=== PATIENT | female | born 1995 | race African-American/Black ===

== ENCOUNTER 2023-04-21 08:40 | Day surgery (SDC) | payer OTHER ==
[2023-04-21] MEDS ORDERED: levETIRAcetam 500 MG/5 ML VIAL ONE (09:15)
[2023-04-21] MEDS ORDERED: Acetaminophen 500 MG TAB ONE (09:32)
[2023-04-21 09:39] LABS: #Eosinphils 0.2 10x3/uL (0.0-0.5); #Monocytes 0.4 10x3/uL (0.0-1.1); #Neutrophils 6.5 10x3/uL (1.5-8.4); %Basophils 0.5 % (0.0-2.0); %Eosinophils 1.9 % (0.0-6.0); %Lymphocytes 17.8 % (18.0-47.0); %Neutrophils 74.3 % (40.0-75.0); Hematocrit 26.2 % (34.9-44.5); Hemoglobin 8.8 g/dL (12.0-15.5); Mean Corpuscular HGB CONC 33.6 g/dL (32.0-36.0); Mean Corpuscular Hemoglobin 29.8 pg (27.0-33.0); Mean Corpuscular Volume 88.8 fl (81.6-98.3); Platelet Count 103 10x3/uL (150-450); RBC Distribution Width 14.3 % (11.5-14.5); Red Blood Cell (RBC) Count 2.95 10x6/uL (3.90-5.03); White Blood Cell (WBC) Count 8.8 10x3/uL (3.5-10.5)
[2023-04-21 09:41] LABS: ALT (SGPT) Less than 7 U/L (8-55); AST (SGOT) 9 U/L (5-34); Albumin 3.2 g/dL (3.5-5.0); Alkaline Phosphatase 72 U/L (40-110); Anion Gap 12 mmol/L (10-20); BUN (Urea Nitrogen) 7 mg/dL (7.0-18.7); Bilirubin, Total 0.2 mg/dL (0.2-1.2); Calc. Creatinine Clearance 0 mL/min (70-130); Calcium 7.9 mg/dL (7.8-10.44); Carbon Dioxide 19 mmol/L (22-29); Chloride 109 mmol/L (98-107); Estimated GFR 121; Globulin 2.9 g/dL (2.4-3.5); Glucose 87 mg/dL (70-105); Potassium 4.1 mmol/L (3.5-5.1); Protein, Total 6.1 g/dL (6.0-8.3); Sodium 136 mmol/L (136-145)
[2023-04-21 10:42] VITALS: BMI 30.4
[2023-04-21] MEDS ORDERED: Lidocaine 4% Patch TD SCH (11:15)
[2023-04-21] MEDS ORDERED: Transdermal Patch Removal TOP SCH (23:00)
== END 2023-04-21 14:00 | disposition home health service (06) ==
LOC: CSHERS 08:40 → CSHLD/OP 10:12
PROVIDERS: ATTEND Family Medicine
DX: O99.352 Diseases of the nervous system complicating pregnancy, second trimester (principal); G40.909 Epilepsy, unspecified, not intractable, without status epilepticus; O34.211 Maternal care for low transverse scar from previous cesarean delivery; O99.012 Anemia complicating pregnancy, second trimester; D64.9 Anemia, unspecified; Z3A.22 22 weeks gestation of pregnancy; Z79.899 Other long term (current) drug therapy
CPT/HCPCS: 36415; 72050; 76815; 80053; 85025; 93005; 96365; J1953

== ENCOUNTER 2023-07-17 00:29 | Day surgery (SDC) | payer OTHER ==
[2023-07-17 00:56] VITALS: BMI 33.1
[2023-07-17] MEDS ORDERED: hydrALAZINE 20 MG/ML VIAL SLOW IVP PRN (01:28)
[2023-07-17 03:25] LABS: Bilirubin Neg (Negative); Blood, Urine 25 (Negative); Glucose, Urine (Dipstick) Normal (Negative); Ketone, Urine 50 mg/dL (Negative); Leukocyte 500 (Negative); Nitrite Positive (Negative); Protein, Urine (Dipstick) 30 mg/dl (Neg-Trace); Urobilinogen Normal mg/dL (Less than 2)
[2023-07-17 03:35] LABS: Amphetamine Not Detected (NotDetected); Barbiturates Screen Not Detected (NotDetected); Benzodiazepine Screen Not Detected (NotDetected); Clarity Cloudy (Clear); Cocaine Metabolite Screen Not Detected (NotDetected); Methadone Not Detected (NotDetected); Methamphetamine Not Detected (NotDetected); Opiate Screen Not Detected (NotDetected); Oxycodone Screen Not Detected (NotDetected); Phencyclidine (PCP) Not Detected (NotDetected); THC/Cannabinoid Screen Not Detected (NotDetected); Tricyclic Screen Not Detected (NotDetected)
[2023-07-17 03:39] LABS: Bacteria/HPF 4+ HPF (None Seen); CAUTI Indications for Culture Pregnancy; RBC/HPF 0-3 HPF (0-3); Transitional Epithelial 0-3 HPF (None Seen); WBC/HPF Greater Than 50 HPF (0-3)
[2023-07-17 03:40] LABS: Urine Culture Reflex Yes Yes
== END 2023-07-17 03:35 | disposition home or self-care (01) ==
LOC: CSHLD/OP 00:29
PROVIDERS: ATTEND Family Medicine
DX: O99.891 Other specified diseases and conditions complicating pregnancy (principal); R10.9 Unspecified abdominal pain; O34.211 Maternal care for low transverse scar from previous cesarean delivery; O98.813 Other maternal infectious and parasitic diseases complicating pregnancy, third trimester; A74.9 Chlamydial infection, unspecified; O23.43 Unspecified infection of urinary tract in pregnancy, third trimester; Z3A.34 34 weeks gestation of pregnancy; Z79.899 Other long term (current) drug therapy
CPT/HCPCS: 76815; 80306; 81001; 87077; 87086; 87186; 99283

== ENCOUNTER 2023-08-02 08:36 | Day surgery (SDC) | payer OTHER ==
[2023-08-02 09:06] LABS: Hematocrit 26.5 % (34.9-44.5); Hemoglobin 8.8 g/dL (12.0-15.5); Mean Corpuscular HGB CONC 33.2 g/dL (32.0-36.0); Mean Corpuscular Hemoglobin 28.5 pg (27.0-33.0); Mean Corpuscular Volume 85.8 fl (81.6-98.3); Mean Platelet Volume 12.3 fl (7.4-10.4); RBC Distribution Width 13.7 % (11.5-14.5); Red Blood Cell (RBC) Count 3.09 10x6/uL (3.90-5.03); White Blood Cell (WBC) Count 7.1 10x3/uL (3.5-10.5)
[2023-08-02 09:13] LABS: Platelet Count 96 10x3/uL (150-450)
[2023-08-02 09:14] LABS: MDiff Complete? YES
[2023-08-02 09:25] LABS: ALT (SGPT) 8 U/L (8-55); AST (SGOT) 10 U/L (5-34); Alkaline Phosphatase 135 U/L (40-110); Anion Gap 12 mmol/L (10-20); BUN (Urea Nitrogen) 5 mg/dL (7.0-18.7); Bilirubin, Total 0.3 mg/dL (0.2-1.2); Calc. Creatinine Clearance 0 mL/min (70-130); Calcium 8.2 mg/dL (7.8-10.44); Carbon Dioxide 21 mmol/L (22-29); Chloride 106 mmol/L (98-107); Estimated GFR 121; Glucose 86 mg/dL (70-105); Potassium 3.8 mmol/L (3.5-5.1); Sodium 135 mmol/L (136-145)
[2023-08-02 09:27] LABS: Band 2 % (5-11); Eosinophils 2 % (0-10); Lymphocytes 17 % (21-51); Monocytes 4 % (0-10); Neutrophil 70 % (42-75); Reactive Lymphocytes 5 % (0-10)
[2023-08-02 09:33] LABS: Platelet Adequacy Comment Appears Decreased
[2023-08-02 09:34] LABS: Hypochromia SLIGHT = 6-15 cells (100X) (0-5/hpf); Polychromasia SLIGHT = 2-3 cells (100X) (0-2/hpf)
[2023-08-02] MEDS ORDERED: hydrALAZINE 20 MG/ML VIAL SLOW IVP PRN (10:03)
[2023-08-02 10:04] VITALS: BMI 32.8
[2023-08-02] MEDS ORDERED: Lactated Ringer's 1,000 ML IV SCH (10:15)
[2023-08-02] MEDS: levETIRAcetam 500 MG TAB PO SCH (10:40)
[2023-08-02 11:01] LABS: Amphetamine Not Detected (NotDetected); Barbiturates Screen Not Detected (NotDetected); Benzodiazepine Screen Not Detected (NotDetected); Cocaine Metabolite Screen Not Detected (NotDetected); Methadone Not Detected (NotDetected); Methamphetamine Not Detected (NotDetected); Opiate Screen Not Detected (NotDetected); Oxycodone Screen Not Detected (NotDetected); Phencyclidine (PCP) Not Detected (NotDetected); THC/Cannabinoid Screen Not Detected (NotDetected); Tricyclic Screen Not Detected (NotDetected)
[2023-08-02 11:03] LABS: Creatinine, Urine 67.63 mg/dL (47-110)
[2023-08-02] MEDS: cefTRIAXone\\ROCEPHIN 1 GM in Sodium Chloride 0.9% 100 ML IVPB SCH (12:14)
[2023-08-02] MEDS ORDERED: Calcium Carbonate 500 MG ChewTAB PO PRN (15:11)
== END 2023-08-02 15:42 | disposition home or self-care (01) ==
LOC: CSHERS 08:36 → CSHLD/OP 09:39
PROVIDERS: ATTEND Family Medicine
DX: O99.353 Diseases of the nervous system complicating pregnancy, third trimester (principal); G40.909 Epilepsy, unspecified, not intractable, without status epilepticus; Z3A.37 37 weeks gestation of pregnancy; Z79.899 Other long term (current) drug therapy
CPT/HCPCS: 36416; 76815; 76819; 80053; 80306; 82570; 84156; 85025; J0696; J3490